=== PATIENT | female | born 1960 | race Two or more races ===

== ENCOUNTER 2023-03-04 13:45 | Inpatient (IN) | payer MEDICAID ==
[2023-03-04] MEDS ORDERED: HEPARIN SODIUM 1,000 UN/ML (10ML VL) IV ONE (14:16)
[2023-03-04] MEDS ORDERED: DILTIAZEM DRIP BOLUS FROM BAG 1 MG SOLN IV ONE (14:16)
[2023-03-04] MEDS ORDERED: HEPARIN SODIUM 1,000 UN/ML (10ML VL) IV PRN (14:16)
--- NOTE | 2023-03-04 14:20 | ED ---
Arrhythmia/Palpitations HPI - General Chief Complaint: Arrhythmia/Palpitations Stated Complaint: AFIB,RVR Time Seen by Provider: 03/04/23 14:12 Source: patient, RN notes reviewed Mode of arrival: wheelchair Limitations: no limitations - History of Present Illness Initial Comments: 62-year-old female presents emergency Department chief complaint of palpi tations, A. fib. Patient states she was scheduled for surgery at [facility] today. Patient states that she was being prepped for surgery when they realized she was in A. fib she has no history she denies any current medications. Patient states that she does not have a history of hypertension hyperlipidemia diabetes she states she's felt anxious, nervous about the surgery recently and felt some palpitations but did not think much of it. 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 Patient denies any significant headache, dizziness, leg pain or leg swelling. - Related Data Allergies Allergy/AdvReac Type Severity Reaction Status Date / Time codeine AdvReac Vomiting Verified 03/04/23 13:54 Review of Systems ROS Statement: Those systems with pertinent positive or pertinent negative responses have been documented in the HPI. ROS Other: All systems not noted in ROS Statement are negative. Past Medical History Past Medical History: No Reported History History of Any Multi-Drug Resistant Organisms: None Reported Past Surgical History: Hysterectomy, Orthopedic Surgery, Tonsillectomy Past Psychological History: ADD/ADHD Smoking Status: Never smoker Past Alcohol Use History: None Reported Past Drug Use History: None Reported General Exam Limitations: no limitations General appearance: alert, in no apparent distress Head exam: Present: atraumatic, normocephalic, normal inspection Eye exam: Present: normal appearance, PERRL, EOMI. Absent: scleral icterus, conjunctival injection, periorbital swelling ENT exam: Present: normal exam, normal oropharynx, mucous membranes moist Neck exam: Present: normal inspection, full ROM. Absent: tenderness, meningismus, lymphadenopathy Respiratory exam: Present: normal lung sounds bilaterally. Absent: respiratory distress, wheezes, rales, rhonchi, stridor Cardiovascular Exam: Present: tachycardia (Irregular), irregular rhythm, normal heart sounds. Absent: regular rate, normal rhythm, systolic murmur, diastolic murmur, rubs, gallop, clicks GI/Abdominal exam: Present: soft, normal bowel sounds. 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 fib with RVR rate of 135 QRS 96 QT/QTc 246/325 - EKG Results: EKG: interpreted by SALOMÓN Medical Decision Making - Medical Decision Making Was pt. sent in by a medical professional or institution (, PA, LICENSED FUNERAL DIRECTOR, urgent care, hospital, or skilled nursing...) When possible be specific @ -Surgeon Did you speak to anyone other than the patient for history (EMS, parent, family, police, friend...)? What history was obtained from this source @ -No Did you review nursing and triage notes (agree or disagree)? Why? @ -I reviewed and agree with nursing and triage notes Were old charts reviewed (outside hosp., previous admission, EMS record, old EKG, old radiological studies, urgent care reports/EKG's, skilled nursing records)? Report findings @ -No old charts were reviewed Differential Diagnosis (chest pain, altered mental status, abdominal pain women, abdominal pain men, vaginal bleeding, weakness, fever, dyspnea, syncope, headache, dizziness, GI bleed, back pain, seizure, CVA, palpatations, mental health, musculoskeletal)? @ -[Differential Palpitations Ventricular arrhythmias, atrial arrhythmias, myocardial infarction, anemia, thyrotoxicosis, electrolyte imbalance, hypokalemia, pulmonary embolism, pulmonary disease, drugs, alcohol, anxiety, stress.... This is not meant to be an all-inclusive list. EKG interpreted by me (3pts min.). @ -As above X-rays interpreted by me (1pt min.). @ -Chest x-ray shows no acute process CT interpreted by me (1pt min.). @ -None done U/S interpreted by me (1pt. min.). @ -None done What testing was considered but not performed or refused? (CT, X-rays, U/S, labs)? Why? @ -None What meds were considered but not given or refused? Why? @ -None Did you discuss the management of the patient with other professionals (professionals i.e. , PA, LICENSED FUNERAL DIRECTOR, lab, RT, psych nurse, manager social responsibility, salvage inspector wood parts, teacher, worldwide chief creative officer, keycase assembler)? Give summary @ -[Dr. Salgado for admission secondary to new onset A. fib, A. fib RVR Was smoking cessation discussed for >3mins.? @ -No Was critical care preformed (if so, how long)? @ -35 minutes Were there social determinants of health that impacted care today? How? (Homelessness, low income, unemployed, alcoholism, drug addiction, transportation, low edu. Level, literacy, decrease access to med. care, longterm, rehab)? @ -No Was there de-escalation of care discussed even if they declined (Discuss DNR or withdrawal of care, Hospice)? DNR status @ -No What co-morbidities impacted this encounter? (DM, HTN, Smoking, COPD, CAD, Cancer, CVA, ARF, Chemo, Hep., AIDS, mental health diagnosis, sleep apnea, morbid obesity)? @ -None Was patient admitted / discharged? Hospital course, mention meds given and route, prescriptions, significant lab abnormalities, going to OR and other pertinent info. @ -Admitted patient was found to be new-onset A. fib, A. fib RVR patient was started on Cardizem, heparin. Patient's laboratory studies did not reveal any acute findings. Patient will be admitted for further monitoring, treatment and cardiology evaluation Undiagnosed new problem with uncertain prognosis? @ -No Drug Therapy requiring intensive monitoring for toxicity (Heparin, Nitro, Insulin, Cardizem)? @ -No Were any procedures done? @ -No Diagnosis/symptom? @ -A. fib RVR new-onset A. fib Acute, or Chronic, or Acute on Chronic? @ -[Acute Uncomplicated (without systemic symptoms) or Complicated (systemic symptoms)? @ -complicated Side effects of treatment? @ -No Exacerbation, Progression, or Severe Exacerbation? @ -No Poses a threat to life or bodily function? How? (Chest pain, [place], [place], pneumonia, PE, COPD, DKA, ARF, appy, cholecystitis, CVA, Diverticulitis, Homicidal, Suicidal, threat to staff... and all critical care pts) @ -yes arrhythmia - Lab Data Result diagrams: 03/04/23 14:17 03/04/23 14:17 Lab Results 03/04/23 03/04/23 03/04/23 Range/Units 14:17 14:17 14:17 WBC 11.1 H (3.8-10.6) k/uL RBC 5.09 (3.80-5.40) m/uL Hgb 15.0 (11.4-16.0) gm/dL Hct 44.7 (34.0-46.0) % MCV 87.7 (80.0-100.0) fL MCH 29.4 (25.0-35.0) pg MCHC 33.5 (31.0-37.0) g/dL RDW 12.8 (11.5-15.5) % Plt Count 320 (150-450) k/uL MPV 7.2 Neutrophils % 61 % Lymphocytes % 29 % Monocytes % 4 % Eosinophils % 3 % Basophils % 1 % Neutrophils # 6.8 (1.3-7.7) k/uL Lymphocytes # 3.3 (1.0-4.8) k/uL Monocytes # 0.5 (0-1.0) k/uL Eosinophils # 0.3 (0-0.7) k/uL Basophils # 0.1 (0-0.2) k/uL PT 9.6 L (10.0-12.5) sec INR 0.9 (<1.2) APTT 24.8 (22.0-30.0) sec Sodium 139 (137-145) mmol/L Potassium 3.9 (3.5-5.1) mmol/L Chloride 105 (98-107) mmol/L Carbon Dioxide 20 L (22-30) mmol/L Anion Gap 14 mmol/L BUN 19 H (7-17) mg/dL Creatinine 0.65 (0.52-1.04) mg/dL Est GFR (CKD-EPI)AfAm >90 (>60 ml/min/1.73 sqM) Est GFR (CKD-EPI)NonAf >90 (>60 ml/min/1.73 sqM) Glucose 107 H (74-99) mg/dL Calcium 10.5 H (8.4-10.2) mg/dL Magnesium 1.9 (1.6-2.3) mg/dL Total Bilirubin 0.7 (0.2-1.3) mg/dL AST 26 (14-36) U/L ALT 34 (4-34) U/L Alkaline Phosphatase 122 (38-126) U/L Troponin I (0.000-0.034) ng/mL Total Protein 7.8 (6.3-8.2) g/dL Albumin 4.7 (3.5-5.0) g/dL 03/04/23 Range/Units 14:17 WBC (3.8-10.6) k/uL RBC (3.80-5.40) m/uL Hgb (11.4-16.0) gm/dL Hct (34.0-46.0) % MCV (80.0-100.0) fL MCH (25.0-35.0) pg MCHC (31.0-37.0) g/dL RDW (11.5-15.5) % Plt Count (150-450) k/uL MPV Neutrophils % % Lymphocytes % % Monocytes % % Eosinophils % % Basophils % % Neutrophils # (1.3-7.7) k/uL Lymphocytes # (1.0-4.8) k/uL Monocytes # (0-1.0) k/uL Eosinophils # (0-0.7) k/uL Basophils # (0-0.2) k/uL PT (10.0-12.5) sec INR (<1.2) APTT (22.0-30.0) sec Sodium (137-145) mmol/L Potassium (3.5-5.1) mmol/L Chloride (98-107) mmol/L Carbon Dioxide (22-30) mmol/L Anion Gap mmol/L BUN (7-17) mg/dL Creatinine (0.52-1.04) mg/dL Est GFR (CKD-EPI)AfAm (>60 ml/min/1.73 sqM) Est GFR (CKD-EPI)NonAf (>60 ml/min/1.73 sqM) Glucose (74-99) mg/dL Calcium (8.4-10.2) mg/dL Magnesium (1.6-2.3) mg/dL Total Bilirubin (0.2-1.3) mg/dL AST (14-36) U/L ALT (4-34) U/L Alkaline Phosphatase (38-126) U/L Troponin I <0.012 (0.000-0.034) ng/mL Total Protein (6.3-8.2) g/dL Albumin (3.5-5.0) g/dL Critical Care Time Critical Care Time: Yes Total Critical Care Time: 35 Disposition Clinical Impression: New onset a-fib, Atrial fibrillation with RVR Disposition: ADMITTED IP TO THIS HOSP Condition: Fair Referrals: Jordi Sandoval MD [Primary Care Provider] - 1-2 days Time of Disposition: 15:01
[2023-03-04 14:28] LABS: Basophils # (A) 0.1 k/uL (0-0.2); Basophils % (A) 1 %; Eosinophils # (A) 0.3 k/uL (0-0.7); Eosinophils % (A) 3 %; HCT 44.7 % (34.0-46.0); Lymphocytes # (A) 3.3 k/uL (1.0-4.8); Lymphocytes % (A) 29 %; MCH 29.4 pg (25.0-35.0); MCHC 33.5 g/dL (31.0-37.0); MCV 87.7 fL (80.0-100.0); Mean Platelet Volume 7.2; Monocytes # (A) 0.5 k/uL (0-1.0); Monocytes % (A) 4 %; Neutrophils # (A) 6.8 k/uL (1.3-7.7); Neutrophils % (A) 61 %; Platelet Count 320 k/uL (150-450); RBC 5.09 m/uL (3.80-5.40); RDW 12.8 % (11.5-15.5); WBC 11.1 k/uL (3.8-10.6)
[2023-03-04] MEDS: HEPARIN SOD,PORK IN 0.45% NACL 25,000 UNIT in 0.45% NACL 1 250ML.BAG IV SCH (14:36)
[2023-03-04] MEDS: DILTIAZEM 125 MG in SODIUM CHLORIDE 0.9% 100 ML IV SCH ×4 (14:36→21:25)
[2023-03-04 14:37] LABS: INR 0.9 (<1.2); Partial Thromboplastin Time 24.8 sec (22.0-30.0); Prothrombin Time 9.6 sec (10.0-12.5)
[2023-03-04 14:41] LABS: ALT 34 U/L (4-34); AST 26 U/L (14-36); African American GFR (CKD) >90 (>60 ml/min/1.73 sqM); Albumin 4.7 g/dL (3.5-5.0); Alkaline Phosphatase 122 U/L (38-126); Anion Gap 14 mmol/L; Blood Urea Nitrogen 19 mg/dL (7-17); Calcium 10.5 mg/dL (8.4-10.2); Carbon Dioxide 20 mmol/L (22-30); Chloride 105 mmol/L (98-107); Glucose 107 mg/dL (74-99); Magnesium 1.9 mg/dL (1.6-2.3); Non-African American GFR(CKD) >90 (>60 ml/min/1.73 sqM); Potassium 3.9 mmol/L (3.5-5.1); Sodium 139 mmol/L (137-145); Total Bilirubin 0.7 mg/dL (0.2-1.3); Total Protein 7.8 g/dL (6.3-8.2)
--- NOTE | 2023-03-04 14:41 | XR ---
EXAMINATION TYPE: XR chest 2V DATE OF EXAM: 03/04/2023 COMPARISON: None INDICATION: Dysrhythmia TECHNIQUE: Single frontal view of the chest is obtained. FINDINGS: The heart size is normal. The pulmonary vasculature is normal. The lungs are clear. IMPRESSION: 1. No acute pulmonary process.
[2023-03-04] MEDS ORDERED: NITROGLYCERIN SL TABS 0.4 MG TAB SUBLINGUAL PRN (15:16)
[2023-03-04] MEDS ORDERED: MELATONIN 3 MG TABLET PO PRN (17:53)
[2023-03-04] MEDS ORDERED: ONDANSETRON 4 MG/2 ML VIAL IVP PRN (17:53)
[2023-03-04] MEDS ORDERED: ACETAMINOPHEN TAB 325 MG TAB PO PRN (17:53)
[2023-03-04] MEDS ORDERED: NALOXONE 0.4 MG/ML 1 ML VIAL IVP PRN (17:53)
--- NOTE | 2023-03-04 17:53 | P.HPIM ---
History of Present Illness H&P Date: 03/04/23 Patient is a 62-year-old female who presented to the ER after being found in A- fib with rapid ventricular response. Patient was at [facility] today and was scheduled to undergo carpal tunnel surgery when she was noted to be in A-fib with rapid ventricular response. She subsequently presented to our ER. On presentation her heart rate was 128 and EKG confirmed atrial fibri llation with rapid ventricular response. Initial laboratory analysis included CBC, coags, CMP, and troponin which were remarkable for white blood cell count 11.1, BUN 19, glucose 107, and calcium of 10.5. In the emergency department she was started on a Cardizem drip and heparin infusion. Arrangements were made for admission. Patient seen and examined at bedside. She denies any known history of atrial fibrillation. She has been feeling some palpitations over the last couple of days but thought that it was related to anxiety about her upcoming surgery. She also notes 1 episode of diaphoresis on Friday. She denies any recent cough, cold, fever, flu. She did have fairly significant COVID-19 in May 2019. She denies any current chest pain, palpitations, lightheadedness, dizziness, or shortness of breath. She does not want to take a blood thinner on discharge. She denies any history of hypertension. She has had some dyslipidemia in the past but this was treated with a 30 pound weight loss and she states her cholesterol numbers have normalized. She reports that she has had a stress test in the past approximately 3 years ago for preoperative clearance. She has not seen a digital printer since then for any reason. Vital signs reviewed General: nontoxic, no distress, appears at stated age Derm: warm, dry ENT: Nose and ears atraumatic, no thrush Cardiovascular: S1S2 irreg and tachy, no murmur, positive posterior tibial pulse bilateral, no edema, Lungs: clear to auscultation bilateral, no rhonchi, no rales, no wheeze, no accessory muscle use Abdominal: soft, nontender to palpation, no guarding, no appreciable organomegaly Ext: no gross muscle atrophy, no contracture Neuro: CN II-XII grossly intact, No focal neuro deficits Psych: Alert, oriented, appropriate affect Assessment/Plan: Newly discovered A fib with RVR - increase Cardizem gtt to 15 gm/hr - continue heparin gtt - Tele - Await echo - Consult cardio - hold methylphenidate - denies HTN states that triamterene hydrochlorothiazide is used as needed for swelling as she is very salt sensitive. - check TSH Hypercalcemia - suspect due to NPO status - repeat in AM Imaging: As per HPI Data Review: As per HPI The patient is placed in observation with an anticipated less than 2 midnight stay for A-fib with rapid ventricular response DVT prophylaxis: Heparin drip Anticipated discharge date: 24 to [address]: Home This dictation was prepared using [employer] voice recognition software. Though every attempt is made to correct errors during dictation some may still exist. Past Medical History Past Medical History: No Reported History History of Any Multi-Drug Resistant Organisms: None Reported Past Surgical History: Hysterectomy, Orthopedic Surgery, Tonsillectomy Past Psychological History: ADD/ADHD Smoking Status: Never smoker Past Alcohol Use History: None Reported Past Drug Use History: None Reported Medications and Allergies Home Medications Medication Instructions Recorded Confirmed Type Cyclobenzaprine [Flexeril] 10 mg PO TID PRN 03/04/23 03/04/23 History Methylphenidate HCl 20 mg PO BID PRN 03/04/23 03/04/23 History [Methylphenidate HCl ER] Triamterene/Hydrochlorothiazid 1 tab PO DAILY PRN 03/04/23 03/04/23 History [Triamterene-Hctz 75-50 mg Tab] Allergies Allergy/AdvReac Type Severity Reaction Status Date / Time codeine AdvReac Vomiting Verified 03/04/23 16:14 Physical Exam Osteopathic Statement: *. No significant issues noted on an osteopathic structural exam other than those noted in the History and Physical/Consult. Vitals: Vital Signs Temp Pulse Pulse Resp BP Pulse Ox 03/04/23 15:30 124 H 17 144/90 96 03/04/23 15:00 122 H 15 130/92 96 03/04/23 14:30 128 H 18 166/108 96 03/04/23 14:00 132 H 18 94 L 03/04/23 13:57 135 H 03/04/23 13:50 97.6 F 128 H 18 135/82 98 Intake and Output 03/04/23 03/04/23 03/04/23 06:59 14:59 22:59 Intake Total 0.083 15.333 Balance 0.083 15.333 Intake: Intake, IV Titration 0.083 15.333 Amount Diltiazem 125 mg In 0.083 Sodium Chloride 0.9% 100 ml @ 5 MG/HR 5 mls/hr IV .Q[facility]H [facility] Rx#:[id number] Diltiazem 125 mg In 15.333 Sodium Chloride 0.9% 100 ml @ 5 MG/HR 5 mls/hr IV .Q24H [facility] Rx#:[id number] Other: Weight 104.326 kg Results CBC & Chem 7: 03/04/23 14:17 03/04/23 14:17 Labs: Abnormal Lab Results - Last 24 Hours (Table) 03/04/23 03/04/23 03/04/23 Range/Units 14:17 14:17 14:17 WBC 11.1 H (3.8-10.6) k/uL PT 9.6 L (10.0-12.5) sec Carbon Dioxide 20 L (22-30) mmol/L BUN 19 H (7-17) mg/dL Glucose 107 H (74-99) mg/dL Calcium 10.5 H (8.4-10.2) mg/dL
[2023-03-04] MEDS ORDERED: diphenhydrAMINE 50 MG CAP PO PRN (20:17)
[2023-03-04] MEDS: SODIUM CHLORIDE 0.9% 1,000 ML IV SCH (21:21)
[2023-03-04 23:07] LABS: Amphetamine Screen,Urine Not Detected (NotDetected); Barbiturate Screen,Urine Not Detected (NotDetected); Benzodiazepines Screen,Urine Not Detected (NotDetected); Cocaine Screen,Urine Not Detected (NotDetected); Methadone Screen, Urine Not Detected (NotDetected); Opiate Screen,Urine Not Detected (NotDetected); Oxycodone Screen, Urine Not Detected (NotDetected); Phencyclidine Screen,Urine Not Detected (NotDetected); Tricyclic Antidepressant,Urine Not Detected (NotDetected); Urn Cannabinoid Scrn Not Detected (NotDetected)
[2023-03-05 00:44] VITALS: RESP 16
[2023-03-05 02:54] LABS: Chol/HDL Ratio 4.16 Ratio; LDL Cholesterol,Calculated 154.9 mg/dL (0.0-131.0)
[2023-03-05 03:49] LABS: HCT 41.5 % (34.0-46.0); HGB 13.4 gm/dL (11.4-16.0); MCH 28.8 pg (25.0-35.0); MCHC 32.4 g/dL (31.0-37.0); Mean Platelet Volume 7.7; Platelet Count 289 k/uL (150-450); RBC 4.67 m/uL (3.80-5.40); RDW 12.9 % (11.5-15.5); WBC 8.1 k/uL (3.8-10.6)
[2023-03-05 04:08] LABS: ALT 26 U/L (4-34); AST 20 U/L (14-36); African American GFR (CKD) >90 (>60 ml/min/1.73 sqM); Albumin 3.9 g/dL (3.5-5.0); Alkaline Phosphatase 93 U/L (38-126); Anion Gap 8 mmol/L; Blood Urea Nitrogen 19 mg/dL (7-17); Calcium 9.6 mg/dL (8.4-10.2); Carbon Dioxide 29 mmol/L (22-30); Chloride 104 mmol/L (98-107); Glucose 103 mg/dL (74-99); Non-African American GFR(CKD) 82 (>60 ml/min/1.73 sqM); Potassium 3.9 mmol/L (3.5-5.1); Sodium 141 mmol/L (137-145); Total Bilirubin 0.6 mg/dL (0.2-1.3); Total Protein 6.4 g/dL (6.3-8.2)
[2023-03-05] MEDS: SODIUM CHLORIDE 0.9% 1,000 ML IV SCH (06:37)
[2023-03-05] MEDS: HEPARIN SOD,PORK IN 0.45% NACL 25,000 UNIT in 0.45% NACL 1 250ML.BAG IV SCH (08:12)
[2023-03-05] MEDS ORDERED: METOPROLOL TARTRATE 25 MG TAB PO SCH (09:00)
--- NOTE | 2023-03-05 10:22 | CA ---
Transthoracic Echo Report Name: Eduardo Kimbrough Age: 62 Gender: F : 1960 Exam Date: 03/04/2023 16:20 Exam Location: [facility] Ht (in): 66 Wt (lb): 230 Ordering Physician: Nathan Malhotra PAC Attending/Referring Phys: SUREKHA, [facility] Consultant Soheila Lima RDCS Procedure CPT: Indications: New onset afib Cardiac Hx: Technical Quality: Technically difficult study Contrast 1: Definity Total Dose (mL): 3 Contrast 2: Total Dose (mL): MEASUREMENTS (Male / Female) Normal Values 2D ECHO LV Diastolic Diameter PLAX 3.9 cm 4.2 - 5.9 / 3.9 - 5.3 cm LV Systolic Diameter PLAX 2.6 cm IVS Diastolic Thickness 1.0 cm 0.6 - 1.0 / 0.6 - 0.9 cm LVPW Diastolic Thickness 1.0 cm 0.6 - 1.0 / 0.6 - 0.9 cm LV Relative Wall Thickness 0.5 RV Internal Dim ED PLAX 3.2 cm LA Systolic Diameter LX 3.3 cm 3.0 - 4.0 / 2.7 - 3.8 cm LV Diastolic Volume MOD BP 29.4 cm??? 67 - 155 / 56 - 104 cm??? LV Systolic Volume MOD BP 11.3 cm??? 22 - 58 / 19 - 49 cm??? LV Ejection Fraction MOD BP 61.4 % >= 55 % LV Cardiac Index MOD BP 890.6 cm???/min???m??? LV Diastolic Volume MOD 4C 35.6 cm??? LV Systolic Volume MOD 4C 6.4 cm??? LV Ejection Fraction MOD 4C 82.0 % LV Cardiac Index MOD 4C 1439.2 cm???/min???m??? LV Diastolic Length 4C 7.9 cm LV Systolic Length 4C 2.9 cm LV Diastolic Volume MOD 2C 24.4 cm??? LV Systolic Volume MOD 2C 9.6 cm??? LV Ejection Fraction MOD 2C 60.7 % LV Cardiac Index MOD 2C 729.2 cm???/min???m??? LV Diastolic Length 2C 7.6 cm LV Systolic Length 2C 6.3 cm LA Volume 49.5 cm??? 18 - 58 / 22 - 52 cm??? LA Volume Index 22.0 cm???/m??? 16 - 28 cm???/m??? M-MODE Aortic Root Diameter MM 3.0 cm LA Systolic Diameter MM 2.1 cm LA Ao Ratio MM 0.7 AV Cusp Separation MM 2.1 cm DOPPLER AV Peak Velocity 112.0 cm/s AV Peak Gradient 5.0 mmHg MV Area PHT 4.4 cm??? MV Deceleration Time 199.7 ms TR Peak Velocity 250.0 cm/s TR Peak Gradient 25.0 mmHg Right Ventricular Systolic Press 30.0 mmHg FINDINGS Left Ventricle Left ventricular ejection fraction is estimated at 50-55 %. Left ventricular cavity size normal. Mildly increased septal wall thickness. Mildly increased posterior wall thickness. Right Ventricle Normal right ventricular size. Right ventricular systolic pressure within normal limits. Right Atrium Normal right atrial size. Left Atrium Normal left atrial size. Mitral Valve Structurally normal mitral valve. Aortic Valve Thickened aortic valve without stenosis. No aortic regurgitation. Tricuspid Valve Structurally normal tricuspid valve. Trace to mild tricuspid regurgitation. Pulmonic Valve Structurally normal pulmonic valve. No pulmonic regurgitation. Pericardium No pericardial effusion. Aorta Normal size aortic root and proximal ascending aorta. CONCLUSIONS Left ventricular ejection fraction is estimated at 50-55 %. No obvious regional wall motion abnormality Mild concentric LVH No significant valvular pathology RVSP estimated at 30 mmHg Epicardial fat Previewed by: Dr Bernardino Cobos (Electronically Signed) Final Date: 05 March 2023 10:21
[2023-03-05 12:22] VITALS: BP 116/72; PULSE 72; TEMP 97.4
--- NOTE | 2023-03-05 13:33 | P.CRDCN ---
History of Present Illness History of present illness: HISTORY OF PRESENT ILLNESS: This is a 62-year-old female with a past medical history significant for ADD and anxiety. 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 We have been asked to see the patient in consultation for new onset atrial fibrillation. Patient examined at the bedside. Patient was at [facility] yesterday to undergo carpal tunnel surgery when she was noted to be in A. fib with RVR. She also had increased BP. She was sent to the emergency room. The patient denies a history of atrial fibrillation. She was started on IV Cardizem and IV heparin. She denied chest pain or pressure. Denies SOB. She does report palpitations yesterday. She does report intentional weight loss of about 30 lbs recently. Echo completed revealing EF 50-55% with no significant valvular issues. * EKG reveals A. fib with RVR * Chest xray negative for acute process * Laboratory data: Sodium 141. Potassium 3.9. BUN 19. Creatinine 0.79. Troponin negative times 3. LDL 154. TSH 2.730 * Current home cardiac medications include triamterene-hydrochlorothiazide 75- 50mg daily as needed for swelling REVIEW OF SYSTEMS: At the time of my exam: CONSTITUTIONAL: Denies fever or chills. HEENT: Denies blurred vision, vision changes, or eye pain. Denies hemoptysis CARDIOVASCULAR: Denies chest pain. Denies orthopnea. Denies PND. Denies palpitations RESPIRATORY: Denies shortness of breath. GASTROINTESTINAL: Denies abdominal pain. Denies nausea or vomiting. HEMATOLOGIC: Denies bleeding disorders. GENITOURINARY: Denies any blood in urine. SKIN: Denies pruitis. Denies rash. PHYSICAL EXAM: VITAL SIGNS: Reviewed. GENERAL: Well-developed in no acute distress. HEENT: Head is normocephalic. Pupils are equal, round. Sclerae anicteric. Mucous membranes of the mouth are moist. Neck supple. No JVD or thyromegaly LUNGS: Respirations even and unlabored. Lungs essentially clear to auscultation bilaterally. HEART: Regular rate and rhythm. S1 and S2 heard. ABDOMEN: Soft. Nondistended. Nontender. EXTREMITIES: Normal range of motion. No clubbing or cyanosis. Peripheral pulses intact. No lower extremity edema NEUROLOGIC: Awake and alert. Oriented x 3. ASSESSMENT: New-onset atrial fibrillation with RVR, currently maintaining sinus mechanism Morbid obesity History of ADD History of anxiety History of hypothyroidism Borderline diabetes, per patient Hyperlipidemia, LDL 154 PLAN: Discontinue IV heparin TSH checked and within normal limits Begin metoprolol 25 mg twice a day Recommend lifestyle modifications for elevated cholesterol. We'll repeat the pa dulce in 3 months No anticoagulation recommended at this time due to CHADVASC score. We will add aspirin 81mg daily Patient is cleared from a cardiac standpoint to proceed with carpal tunnel surgery scheduled for next week from a cardiac standpoint Patient may be discharged home today from a cardiac standpoint Nurse practitioner note has been reviewed by physician. Signing provider agrees with the documented findings, assessment, and plan of care. Past Medical History Past Medical History: No Reported History History of Any Multi-Drug Resistant Organisms: None Reported Past Surgical History: Hysterectomy, Orthopedic Surgery, Tonsillectomy Past Psychological History: ADD/ADHD Smoking Status: Never smoker Past Alcohol Use History: None Reported Past Drug Use History: None Reported - Past Family History Mother Family Medical History: Cancer Father Family Medical History: Cancer Medications and Allergies Home Medications Medication Instructions Recorded Confirmed Type Cyclobenzaprine [Flexeril] 10 mg PO TID PRN 03/04/23 03/04/23 History Methylphenidate HCl 20 mg PO BID PRN 03/04/23 03/04/23 History [Methylphenidate HCl ER] Triamterene/Hydrochlorothiazid 1 tab PO DAILY PRN 03/04/23 03/04/23 History [Triamterene-Hctz 75-50 mg Tab] Allergies Allergy/AdvReac Type Severity Reaction Status Date / Time codeine AdvReac Vomiting Verified 03/04/23 16:14 Physical Exam Vitals: Vital Signs Temp Pulse Pulse Resp BP BP Pulse Ox 03/05/23 04:00 98.4 F 72 16 111/66 94 L 03/05/23 02:00 64 16 03/05/23 00:00 64 16 126/78 95 03/04/23 20:00 98.2 F 80 18 115/75 96 03/04/23 18:00 90 18 122/79 95 03/04/23 15:30 124 H 17 144/90 96 03/04/23 15:00 122 H 15 130/92 96 03/04/23 14:30 128 H 18 166/108 96 03/04/23 14:00 132 H 18 94 L 03/04/23 13:57 135 H 03/04/23 13:50 97.6 F 128 H 18 135/82 98 Intake and Output 03/04/23 03/05/23 03/05/23 22:59 06:59 14:59 Intake Total 258.750 365 Balance 258.750 365 Intake: Intake, IV Titration 138.750 125 Amount Diltiazem 125 mg In 71.583 125 Sodium Chloride 0.9% 100 ml @ 5 MG/HR 5 mls/hr IV .Q24H [facility] Rx#:[id number] Heparin Sod,Pork in 0.45% 67.167 NaCl 25,000 unit In 0.45 % NaCl 1 250ml.bag @ 9. 585 UNITS/KG/HR 10 mls/hr IV .Q24H [facility] Rx#: [id number] Oral 120 240 Other: Voiding Method Toilet Toilet # Voids 2 Results 03/05/23 03:29 03/05/23 03:29 Cardiac Enzymes 03/04/23 03/04/23 03/04/23 Range/Units 14:17 14:17 17:39 AST 26 (14-36) U/L Troponin I <0.012 <0.012 (0.000-0.034) ng/mL 03/04/23 03/05/23 Range/Units 20:06 03:29 AST 20 (14-36) U/L Troponin I <0.012 (0.000-0.034) ng/mL Coagulation 03/04/23 03/04/23 03/05/23 Range/Units 14:17 20:06 03:29 PT 9.6 L (10.0-12.5) sec APTT 24.8 33.4 H 43.2 H (22.0-30.0) sec Lipids 03/04/23 Range/Units 16:22 Triglycerides 209.00 H (0.00-149.00) mg/dL Cholesterol 259.00 H (0.00-200.00) mg/dL HDL Cholesterol 62.30 H (40.00-60.00) mg/dL Cholesterol/HDL Ratio 4.16 Ratio CBC 03/04/23 03/05/23 Range/Units 14:17 03:29 WBC 11.1 H 8.1 (3.8-10.6) k/uL RBC 5.09 4.67 (3.80-5.40) m/uL Hgb 15.0 13.4 (11.4-16.0) gm/dL Hct 44.7 41.5 (34.0-46.0) % Plt Count 320 289 (150-450) k/uL Comprehensive Metabolic Panel 03/04/23 03/05/23 Range/Units 14:17 03:29 Sodium 139 141 (137-145) mmol/L Potassium 3.9 3.9 (3.5-5.1) mmol/L Chloride 105 104 (98-107) mmol/L Carbon Dioxide 20 L 29 (22-30) mmol/L BUN 19 H 19 H (7-17) mg/dL Creatinine 0.65 0.79 (0.52-1.04) mg/dL Glucose 107 H 103 H (74-99) mg/dL Calcium 10.5 H 9.6 (8.4-10.2) mg/dL AST 26 20 (14-36) U/L ALT 34 26 (4-34) U/L Alkaline Phosphatase 122 93 (38-126) U/L Total Protein 7.8 6.4 (6.3-8.2) g/dL Albumin 4.7 3.9 (3.5-5.0) g/dL Current Medications Generic Name Dose Route Start Last Admin Trade Name Freq PRN Reason Stop Dose Admin Acetaminophen 650 mg 03/04/23 17:53 Acetaminophen Tab 325 Mg Tab PO Q6HR PRN Mild Pain or Fever > 100.5 Diphenhydramine HCl 50 mg 03/04/23 20:17 03/04/23 21:19 Diphenhydramine 50 Mg Cap PO 50 mg HS PRN Administration Insomnia Heparin Sodium (Porcine) 0 unit 03/04/23 14:16 Heparin Sodium 1,000 Un/Ml (10ml Vl) IV PER PROTOCOL PRN Low PTT Protocol Heparin Sodium/Sodium Chloride 250 mls @ 10 mls/hr 03/04/23 14:30 03/04/23 21:19 25,000 unit/ Sodium Chloride IV 12.5 units/kg/hr .Q24H JOSE ANTONIO 13.041 mls/hr Titration Protocol 9.585 UNITS/KG/HR Diltiazem HCl 125 mg/ Sodium 125 mls @ 5 mls/hr 03/04/23 15:15 03/05/23 06:37 Chloride IV Infused .Q24H [facility] Titration Protocol 5 MG/HR Sodium Chloride 1,000 mls @ 75 mls/hr 03/04/23 18:00 03/05/23 06:37 Saline 0.9% IV Not Given .[id number] [facility] Melatonin 3 mg 03/04/23 17:53 Melatonin 3 Mg Tablet PO HS PRN Insomnia Naloxone HCl 0.2 mg 03/04/23 17:53 Naloxone 0.4 Mg/Ml 1 Ml Vial IVP Q2M PRN Opioid Reversal Nitroglycerin 0.4 mg 03/04/23 15:16 Nitroglycerin Sl Tabs 0.4 Mg Tab SUBLINGUAL Q5M PRN Chest Pain Ondansetron HCl 4 mg 03/04/23 17:53 Ondansetron 4 Mg/2 Ml Vial IVP Q8HR PRN Nausea And Vomiting Intake and Output 03/04/23 03/05/23 03/05/23 22:59 06:59 14:59 Intake Total 258.750 365 Balance 258.750 365 Intake: Intake, IV Titration 138.750 125 Amount Diltiazem 125 mg In 71.583 125 Sodium Chloride 0.9% 100 ml @ 5 MG/HR 5 mls/hr IV .Q24H [facility] Rx#:[id number] Heparin Sod,Pork in 0.45% 67.167 NaCl 25,000 unit In 0.45 % NaCl 1 250ml.bag @ 9. 585 UNITS/KG/HR 10 mls/hr IV .Q24H [facility] Rx#: [id number] Oral 120 240 Other: Voiding Method Toilet Toilet # Voids 2 03/05/23 03:29 03/05/23 03:29
--- NOTE | 2023-03-05 16:33 | P.DS ---
Providers Date of admission: 03/04/23 15:38 Expected date of discharge: 03/05/23 Attending physician: Mague Longoria DO Primary care physician: Jordi Sandoval Hospital Course: Discharge Diagnosis: A. fib with rapid ventricular response Dyslipidemia Hypercalcemia secondary to dehydration, resolved Hospital Course: Patient is a 62-year-old female who presented to the ER after being found in A- fib with rapid ventricular response. Patient was at [facility] today and was scheduled to undergo carpal tunnel surgery when she was noted to be in A-fib with rapid ventricular response. She subsequently presented to our ER. On presentation her heart rate was 128 and EKG confirmed atrial fibrillation with rapid ventricular response. Initial laboratory analysis included CBC, coags, CMP, and troponin which were remarkable for white blood cell count 11.1, BUN 19, glucose 107, and calcium of 10.5. In the emergency department she was started on a Cardizem drip and heparin infusion. Arrangements were made for admission. He was continued on Cardizem and heparin infusions. She converted to normal sinus rhythm. She was seen by cardiology. Her chadsvasc score is 1 and she was determined appropriate for aspirin. Neurology recommended initiation of metoprolol. Echocardiogram obtained and showed an ejection fraction of 50-55% with no significant valvular pathology. Patient was determined stable for discharge home. Follow-up: Metoprolol 25 mg twice daily, aspirin 81 mg daily. She will see Dr. Kohler next week in office. She'll follow up with Dr. Mondragon. She has elected for lifestyle modifications due to her dyslipidemia and they will follow up labs again in 3-6 months. Patient seen and examined at bedside. Denies any chest pain, palpitations, or shortness of breath. Asking to be discharged home. Vital signs reviewed and stable. General: nontoxic, no distress, appears at stated age Cardiovascular: S1S2 reg, no murmur, positive posterior tibial pulse bilateral, Lungs: CTA bilateral, no rhonchi, no rales , no accessory muscle use Abdominal: soft, nontender to palpation, no guarding, no appreciable organomegaly Ext: no gross muscle atrophy, no edema b/l lower extremities, no contracture Neuro: CN II-XI grossly intact, no focal neuro deficits Psych: Alert, oriented, appropriate affect A total of 32 minutes of time were spent preparing this complex discharge summary. Patient was discharged on 03/05/23. This dictation was prepared using [employer] voice recognition software. Though every attempt is made to correct errors during dictation some may still exist. Patient Condition at Discharge: Stable Plan - Discharge Summary Discharge Rx Participant: No New Discharge Prescriptions: New Aspirin 81 mg PO DAILY tab Metoprolol Tartrate [Lopressor] 25 mg PO BID #60 tab Continue Cyclobenzaprine [Flexeril] 10 mg PO TID PRN PRN Reason: Muscle Spasm Triamterene/Hydrochlorothiazid [Triamterene-Hctz 75-50 mg Tab] 1 tab PO DAILY PRN PRN Reason: Bloating Discontinued Methylphenidate HCl [Methylphenidate HCl ER] 20 mg PO BID PRN PRN Reason: WORK Discharge Medication List Cyclobenzaprine [Flexeril] 10 mg PO TID PRN 03/04/23 [History] Triamterene/Hydrochlorothiazid [Triamterene-Hctz 75-50 mg Tab] 1 tab PO DAILY PRN 03/04/23 [History] Aspirin 81 mg PO DAILY tab 03/05/23 [Rx] Metoprolol Tartrate [Lopressor] 25 mg PO BID #60 tab 03/05/23 [Rx] Follow up Appointment(s)/Referral(s): Sourav Kohler DO [STAFF PHYSICIAN] - 1 Week (Office is pulling your hospital records and will call you with an appointment date/time.) Jordi Sandoval MD [Primary Care Provider] - 03/06/23 1:30 pm Patient Instructions/Handouts: A-fib (Atrial Fibrillation) (DC) Discharge Disposition: HOME SELF-CARE
[2023-03-06] MEDS ORDERED: ASPIRIN 81 MG PO SCH (09:00)
== END 2023-03-05 15:25 | disposition home or self-care (01) | DRG 310 ==
LOC: EC 13:45 → 3SCARD 15:38
PROVIDERS: ADMIT Internal Medicine; ATTEND Internal Medicine
DX: I48.91 Unspecified atrial fibrillation (principal); Z79.01 Long term (current) use of anticoagulants; E03.9 Hypothyroidism, unspecified; R73.03 Prediabetes; Z68.37 Body mass index [BMI] 37.0-37.9, adult; E78.5 Hyperlipidemia, unspecified; E66.01 Morbid (severe) obesity due to excess calories; I07.1 Rheumatic tricuspid insufficiency; F90.9 Attention-deficit hyperactivity disorder, unspecified type; F41.9 Anxiety disorder, unspecified; E83.52 Hypercalcemia; E86.0 Dehydration; Z88.5 Allergy status to narcotic agent; Z79.82 Long term (current) use of aspirin; Z86.16 Personal history of COVID-19; Z90.710 Acquired absence of both cervix and uterus
CPT/HCPCS: 36415; 71046; 80053; 80061; 80306; 83735; 84443; 84484; 85025; 85027; 85610; 85730; 93005; 93306; 96365; 96366; 96368; 99291